=== PATIENT | female | born 1960 | race Caucasian/White ===

== ENCOUNTER 2017-02-17 01:04 | Emergency (ER) | payer OTHER ==
[~2017-02-17] VITALS: Ht 165.1 cm; Wt 142.9 kg
[~2017-02-17 01:04] MED LIST: ASCO500C PO; ATOR40TA59 PO; DOCU-109 PO; ERGO500027 PO; ERTA1VIA IV; FERR325T58 PO; GABA-586 PO; GLUC1CAP48 PO; INSU100I13 SQ; INSU100V31 SQ; INSU300I SQ; LACT1CAP2 PO; LEVO100T5 PO; MAGN400C PO; OXYC-323 PO; PIOG45TA40 PO; POTA99TA3 PO; VITA100075 PO; VITA150T PO; VITA80003 PO; calcium
[2017-02-17 01:45] VITALS: BP 151/71
[2017-02-17] MEDS ORDERED: HYDR-971 PO (02:05)
--- NOTE | 2017-02-17 02:06 | PHYS DOC ---
Past Medical History Past Medical History: Asthma, Diabetes-Type II, High Cholesterol, Hypertension , Hypothyroid Additional Past Medical Histor: Gangrene/Staph, Bx Cataracts Past Surgical History: Other Additional Past Surgical Histo: Panniculectomy, Necrotic Flesh removed, Bx Cataracts, R Carpal, R breast bx Alcohol Use: Rarely Drug Use: None Adult General Chief Complaint Chief Complaint: FOOT INJURY PAIN HPI HPI Patient is a 56 year old female who presents with complaint of left foot pain. Patient states that the pain started shortly prior to arrival. Patient states that she attempted to get out of bed and as she was walking she felt a "snap" in her left foot. This was followed with sudden pain along the lateral aspect of her left foot. Patient denies fall or any other injury. Patient states that with weightbearing she has 10 out of 10 pain. The patient has been trying to ambulate on the medial side of her foot to avoid any weightbearing and to help her ambulation. Patient has not taken any medications for her symptoms at this time. Review of Systems Review of Systems Constitutional: Denies fever or chills [] HENT: Denies nasal congestion or sore throat []ia [] Musculoskeletal: Left foot pain [] Integument: Denies rash or skin lesions [] Neurologic: Denies headache, focal weakness or sensory changes [] Current Medications Current Medications Current Medications Medications (Trade) Dose Ordered Sig/Josué Start Time Stop Time Status Last Admin Dose Admin Acetaminophen/ Hydrocodone Bitart (Lortab 7.5/325) 1 tab 1X ONCE 02/17/17 02:30 02/17/17 02:31 DC 02/17/17 02:20 1 TAB Allergies Allergies Allergies Coded Allergies Type Severity Reaction Last Updated Verified strawberry Adverse Reaction Intermediate 02/29/16 Yes sulfamethoxazole Adverse Reaction Intermediate Nausea and Vomiting 02/29/16 Yes trimethoprim Adverse Reaction Intermediate Nausea and Vomiting 02/29/16 Yes Physical Exam Physical Exam Constitutional: Alert, obese, afebrile, appears in mild to moderate discomfort. [] HENT: Normocephalic, atraumatic, bilateral external ears normal, oropharynx moist, no oral exudates, nose normal. [] Extremities: No obvious deformity, severe tenderness to palpation along proximal left fifth metatarsal, capillary refill less than 2 seconds in all 5 digits, normal sensation. [] Neurologic: Alert and oriented X 3, normal motor function, normal sensory function, no focal deficits noted. [] Current Patient Data Vital Signs Vital Signs Date Time Temp Pulse Resp B/P (MAP) Pulse Ox O2 Delivery O2 Flow Rate FiO2 02/17/17 02:20 20 Room Air 02/17/17 01:45 98.4 90 97 98.4 EKG EKG Not performed[] Radiology/Procedures Radiology/Procedures 3 view left foot x-ray interpreted by me: Left proximal fifth metatarsal nondisplaced fracture [] Course & Med Decision Making Course & Med Decision Making Pertinent Labs and Imaging studies reviewed. (See chart for details) Patient found have a left fifth proximal metatarsal fracture. This appears to be proximal to the watershed area of the left fifth metatarsal and appears consistent with a pseudo-Cason fracture. The patient was placed in a posterior splint with orthopedic shoe placed by the emergency department tool grinding technician. My evaluation post splint application showed normal capillary refill in all 5 digits of the left foot and normal sensation. Advised patient to remain nonweightbearing along the lateral aspect of the left foot. The patient was treated with [place] for pain in the emergency department. The patient has followed with Dr. Whipple of podiatry in the past for a similar injury to her right foot. The patient will be referred to Dr. Whipple for follow-up in 5-7 days for reevaluation. Advised return emergency department for any worsening symptoms. Patient voiced understanding and in agreement with treatment plan. Dragon Disclaimer Dragon Disclaimer This electronic medical record was generated, in whole or in part, using a voice recognition dictation system. Departure Departure Impression: Primary Impression: Fracture of fifth metatarsal bone Disposition: 01 HOME, SELF-CARE Condition: STABLE Referrals: ASTRID SIMS (PCP) LUCITA WHIPPLE DPLawrence Patient Instructions: Metatarsal Fracture, Undisplaced Additional Instructions: Follow-up with Dr. Whipple in 5-7 days for reevaluation. Return to emergency department for any worsening symptoms. Scripts Hydrocodone/Apap 5-325 (NORCO 5-325 TABLET) 1 Each Tablet 1-2 TAB PO Q4-6HRS Y for PAIN, #20 TAB Prov: URSULA LI MD 02/17/17 Problem Qualifiers Primary Impression: Fracture of fifth metatarsal bone Encounter type: initial encounter Fracture type: closed Fracture alignment : nondisplaced Laterality: left Qualified Codes: S92.355A - Nondisplaced fracture of fifth metatarsal bone, left foot, initial encounter for closed fracture URSULA LI MD Feb 17, 2017 02:06
[2017-02-17] MEDS ORDERED: HYDROcodone/APAP 7.5/325MG 1 TAB TABLET PO ONE (02:30)
--- NOTE | 2017-02-17 07:42 | RAD ---
Examination: 3 views of the left foot History: History of foot pain, swelling Comparison: None available Findings: There is a transverse nondisplaced fracture of the base of the fifth metatarsal. The evaluation of the tarsometatarsal joint is somewhat limited due to positioning. Small inferior calcaneal enthesophyte identified. Moderate degenerative changes identified in the attachment of the joints. The alignment of the metatarsophalangeal joints, interphalangeal grossly appears unremarkable. Impression: Transverse nondisplaced fracture of the base of the fifth metatarsal.
== END 2017-02-17 02:54 | disposition home or self-care (01) ==
LOC: ER 01:04
DX: S92.355A Nondisplaced fracture of fifth metatarsal bone, left foot, initial encounter for closed fracture (principal); E03.9 Hypothyroidism, unspecified; E11.9 Type 2 diabetes mellitus without complications; E78.00 Pure hypercholesterolemia, unspecified; I10 Essential (primary) hypertension; J45.909 Unspecified asthma, uncomplicated; Z98.890 Other specified postprocedural states; Z88.1 Allergy status to other antibiotic agents; Z88.2 Allergy status to sulfonamides; Z91.018 Allergy to other foods; X58.XXXA Exposure to other specified factors, initial encounter; Y93.89 Activity, other specified; Y99.8 Other external cause status; Y92.89 Other specified places as the place of occurrence of the external cause
CPT/HCPCS: 29515; 73630; 99284-25